=== PATIENT | male | born 1970 | race Caucasian/White ===

== ENCOUNTER 2018-08-26 20:20 | Emergency (ER) | payer OTHER ==
--- NOTE | 2018-08-26 20:45 | EDPHY ---
General Time Seen by Provider: 08/26/18 20:37 Narrative: CLINICAL IMPRESSION: Closed, left, distal fibula fracture with widened ankle mortise ASSESSMENT/PLAN: Pleasant 48-year-old male presents to the emergency department with left ankle pain after slipping on the ice earlier today. Patient has no open wounds, no proximal lower leg knee or upper leg pain. Distal neurovascular exam is intact. X-rays confirm a closed distal fibula fracture as well as a widened ankle mortise suggestive of underlying ligamentous injury. Patient has had numerous ankle sprains to this leg. He was placed in a [address] splint and has crutches. A referral was given to Orthopedics and I encouraged follow-up in the next 24-48 hours. Rice treatment reviewed. Patient declined prescription analgesics. Warning signs for return to emergency department sooner outlined and discharge. DIFFERENTIAL DX: Differential includes but not limited to acute fracture, strain/sprain, joint dislocation, soft tissue contusion ED PROCEDURES: Procedure: Splint placement. A 3 way lower leg splint was applied to left leg by emergency medical technician basic, supervised by myself. After application of the splint I returned and re-examined the patient. The splint was adequately immobilizing the joint and distal to the splint the patient's circulation and sensation was intact. ED COURSE: 8:40 p.m.: X-rays ordered. Patient took ibuprofen prior to arrival CHIEF COMPLAINT: Left ankle pain HPI: 48-year-old otherwise healthy male presents to the emergency department after he slipped on ice today injuring his left ankle. Patient states his ankle " when all kinds of different directions". He reports prior sprains to this ankle but has never had surgery. No open wounds. No reported knee pain, hip pain or numbness or tingling to the foot or toes. PAST MEDICAL HISTORY: Prior ankle sprains Pertinent Past Surgical History: None reported Social History: Otherwise healthy REVIEW OF SYSTEMS: All other systems negative Constitutional: No fever, no chills Musculoskeletal: No deformity, + joint pain Skin: No rashes, color change or open wounds. Neurological: No sensory loss or weakness. PHYSICAL EXAM: General Appearance: Alert, oriented, appropriate for age, cooperative, NAD, well hydrated, non-toxic appearing, VSS, no hypoxia. Neurological: Alert and oriented x 3, normal sensation Skin: Warm, dry, no rashes, no nodules on palpation. Musculoskeletal: Obvious swelling to medial and lateral malleolus of left ankle. No open wounds. Distal neurovascular exam intact. Mild palpable defect to distal fibula concerning for fracture. MEDICAL DECISION MAKING: Patient was seen independently. Secondary supervising physician at time of evaluation was Dr. Carey. Diagnosis: Closed left distal fibula fracture with widened ankle mortise. New, requires workup Summary: See assessment and plan for summary of ED visit Independent visualization of images, tracing, or specimens yes. Patient Progress: stable . - History Smoking Status: Never smoked - Objective Vital Signs: Initial Vital Signs Temperature (C) 36.9 C 08/26/18 20:25 Heart Rate 89 08/26/18 20:25 Respiratory Rate 20 08/26/18 20:25 Blood Pressure 124/85 H 08/26/18 20:25 O2 Sat (%) 95 08/26/18 20:25 O2 Delivery Mode Room Air Allergies/Adverse Reactions: No Known Allergies Allergy (Unverified 08/26/18 20:23) Home Medications: Medication Instructions Recorded Celexa 08/26/18 Departure - Departure Disposition: Home, Routine, Self-Care Clinical Impression: Fracture of distal fibula Condition: Good Instructions: Leg Fracture (ED) Additional Instructions: DISCHARGE INSTRUCTIONS FROM YOUR DOCTOR Thank you for visiting our emergency department today. Please keep in mind that discharge from the emergency department does not mean that there is nothing wrong - it simply means that we have not identified an emergency condition that requires further evaluation or treatment in the hospital. You should always plan to follow up with primary care for re-evaluation of your condition in the next 2-3 days. If you have been referred to a specialist, please call as soon as possible (today or tomorrow) to schedule your follow up appointment at the appropriate time. YOU HAVE A CLOSED FRACTURE OF THE DISTAL FIBULA ON THE LEFT LEG. THIS NEEDS ORTHOPEDIC EVALUATION. PLEASE CALL ORTHOPEDICS TOMORROW, LET THEM KNOW YOUR IN THE EMERGENCY DEPARTMENT AND YOU NEED TO FOLLOW-UP APPOINTMENT. PLEASE DO NOT PUT WEIGHT ON THE LEG UNTIL YOU SEE ORTHOPEDICS. REST AND ELEVATE THE AFFECTED EXTREMITY MUCH POSSIBLE. ICE THE AFFECTED AREAS 20 MIN ON, 20 MIN OFF FOR THE NEXT SEVERAL DAYS. PLEASE USE TYLENOL OR IBUPROFEN OVER THE COUNTER IN APPROPRIATE DOSES OUTLINED ON YOUR DISCHARGE PAPERS. TAKE IBUPROFEN WITH FOOD AND A LARGE GLASS OF WATER. RETURN TO THE EMERGENCY DEPARTMENT FOR WORSENING PAIN, LOSS OF SENSATION TO THE FOOT OR TOES, SKIN DISCOLORATION TO THE FOOT OR TOES, FEVER OR ANY OTHER CONCERN. People present with illnesses and injuries in different ways, and it is always possible that we have missed something. You may always return for re-evaluation if symptoms worsen or if they are not improving or if you develop new/different symptoms. Again, thank you for choosing our emergency department. We hope that you feel better. Referrals: Yesenia Banks NP [Primary Care Provider] - As per Instructions Sarah Marion MD [Medical Doctor] - 1-2 days without fail
[2018-08-26 21:49] VITALS: BP 124/71
== END 2018-08-26 22:10 | disposition home or self-care (01) ==
PROC: 2W3RX1Z Immobilization of Left Lower Leg using Splint (ICD-10-PCS; principal; 2018-08-26)
DX: S82.492A Other fracture of shaft of left fibula, initial encounter for closed fracture (principal); W00.0XXA Fall on same level due to ice and snow, initial encounter; Y92.480 Sidewalk as the place of occurrence of the external cause

== ENCOUNTER 2018-08-31 11:33 | Day surgery (SDC) | payer OTHER ==
--- NOTE | 2018-08-30 15:31 | PDGENHP ---
History & Physical Chief Complaint: Left distal fibul afracture, syndesmosis injury History of Present Illness: Bulmaro is a pleasant 48 year old male who fell while walking on [address]. He was found to have displaced left distal fibula fracture with widening of the syndesmosis on radiograph. Risks, benefits , alternatives to conservative and surgical treatment were discussed and patient would like to proceed with surgical intervention. Pertinent Past, Social, Family History: PMH: Hernia. SH: former smoker. FH: non-contributory Relevant Physical Exam: Bulmaro is in a well fitting splint. NV intact LLE to limited exam. Radiographs show displaced distal fibula fracture with widening of the syndesmosis. Cardiorespiratory Assessment: RRR, CTAB
[2018-08-31] MEDS ORDERED: ceFAZolin 2 GM/DEXTROSE 100 ML IV ONE (12:06)
[2018-08-31] MEDS ORDERED: DEXAMETHASONE 4 MG/ML VIAL ONE (12:28)
[2018-08-31] MEDS ORDERED: LIDOCAINE 2% 5 ML SDV ONE ×3 (12:28→12:33)
[2018-08-31] MEDS ORDERED: ONDANSETRON 4 MG/2 ML VIAL ONE (12:28)
[2018-08-31] MEDS ORDERED: PROPOFOL 200 MG/20 ML VIAL ONE (12:29)
[2018-08-31] MEDS ORDERED: fentaNYL 100 MCG/2 ML INJ ONE ×2 (12:29→13:37)
[2018-08-31] MEDS ORDERED: ROPIVACAINE HCL 100 MG/20 ML INJ ONE (12:31)
[2018-08-31] MEDS ORDERED: LR 1,000 ML IV ONE (12:36)
[2018-08-31] MEDS ORDERED: MIDAZOLAM 2 MG/2 ML VIAL IVP ONE (12:39)
--- NOTE | 2018-08-31 12:39 | PDANEPAE ---
ANE Past Medical History - Cardiovascular History Hx Hypertension: No Hx Arrhythmias: No Hx Chest Pain: No Hx Coronary Artery / Peripheral Vascular Disease: No Hx CHF / Valvular Disease: No Hx Palpitations: No - Pulmonary History Hx COPD: No Hx Asthma/Reactive Airway Disease: No Hx Recent Upper Respiratory Infection: No Hx Oxygen in Use at Home: No Hx Sleep Apnea: No Sleep Apnea Screening Result - Last Documented: Negative - Neurologic History Hx Cerebrovascular Accident: No Hx Seizures: No Hx Dementia: No - Endocrine History Hx Diabetes: No - Renal History Hx Renal Disorders: No - Liver History Hx Hepatic Disorders: No - Neurological & Psychiatric Hx Hx Neurological and Psychiatric Disorders: No - Cancer History Hx Cancer: Yes Cancer History Comment: skin cancer recently removed - Congenital Disorder History Hx Congenital Disorders: No - GI History Hx Gastrointestinal Disorders: No - Other Health History Other Health History: none - Chronic Pain History Chronic Pain: No - Surgical History Prior Surgeries: cyst removed from sinuses. skin cancer removal. hernia repair x2 ANE Review of Systems Review of Systems: - Exercise capacity METS (RN): 4 METS ANE Patient History - Allergies Allergies/Adverse Reactions: metals Allergy (Uncoded 08/31/18 12:10) Rash - Home Medications Home Medications: Celexa 08/26/18 [Last Taken 08/30/18] Fish Oil 1,000 mg Softgel 4,000 units 08/31/18 [Last Taken 08/24/18] Multivitamin 08/31/18 [Last Taken 08/29/18] - NPO status NPO Since - Liquids (Date): 08/31/18 NPO Since - Liquids (Time): 09:00 NPO Since - Solids (Date): 08/30/18 NPO Since - Solids (Time): 23:00 - Smoking Hx Smoking Status: Former smoker - Family Anes Hx Family Hx Anesthesia Complications: none ANE Labs/Vital Signs - Vital Signs Blood Pressure: 110/75 Heart Rate: 85 Respiratory Rate: 16 O2 Sat (%): 94 Height: 182.88 cm Weight: 78.425 kg ANE Physical Exam - Airway Neck exam: FROM Mallampati Score: Class 2 Mouth exam: normal dental/mouth exam - Pulmonary Pulmonary: no respiratory distress, no rales or rhonchi, clear to auscultation - Cardiovascular Cardiovascular: regular rate and rhythym, no murmur, rub, or gallop - ASA Status ASA Status: II ANE Anesthesia Plan Anesthesia Plan: GA w LMA Regional Anesthesia: single shot NB
--- NOTE | 2018-08-31 12:39 | POSTANESTH ---
Post Anesthetic Evaluation Cardiovascular Status: Normal, Stable Respiratory Status: Normal, Stable Level of Consciousness/Mental Status: Can Participate in Eval Pain Control: Adequate, Prn Tx Ordered Nausea/Vomiting Control: Adequate, Prn Tx Ordered Complications Possibly Related to Anesthesia: None Noted
[2018-08-31] MEDS ORDERED: HYDROmorphONE/DILAUDID 2 MG/ML INJ IVP PRN (12:40)
[2018-08-31] MEDS ORDERED: METOCLOPRAMIDE 10 MG/2 ML VIAL IVP PRN (12:40)
[2018-08-31] MEDS ORDERED: fentaNYL 100 MCG/2 ML INJ IVP PRN (12:40)
[2018-08-31] MEDS ORDERED: PHENYLEPHRINE HCL 100 MCG/ML SYR IVP PRN (12:40)
[2018-08-31] MEDS ORDERED: LR 500 ML IV PRN (12:40)
[2018-08-31] MEDS ORDERED: oxyCODONE IR 5 MG TAB PO PRN (12:40)
[2018-08-31] MEDS ORDERED: MEPERIDINE 25 MG/0.5 ML AMP IVP PRN (12:40)
[2018-08-31] MEDS ORDERED: ONDANSETRON 4 MG/2 ML VIAL IVP PRN (12:40)
[2018-08-31] MEDS ORDERED: PROMETHAZINE HCL 25 MG/ML INJ IVP PRN (12:40)
[2018-08-31] MEDS ORDERED: NALOXONE HCL 0.4 MG/ML INJ IVP PRN (12:40)
[2018-08-31] MEDS ORDERED: POLYMYXIN B SULFATE 500,000 UNIT/10 ML SYR IRR ONE (12:42)
[2018-08-31] MEDS ORDERED: BACITRACIN 50,000 UNITS/10 ML SYR IRR ONE (12:42)
--- NOTE | 2018-08-31 13:17 | PDHPUP ---
History & Physical Update H&P update statement: This history and physical update is based on an assessment of the patient which was completed after admission or registration (within 24 hours), but prior to the surgery/procedure. H&P update: H&P reviewed & patient examined, no change in patient's condition since H&P completed
[2018-08-31] MEDS ORDERED: OXYCODONE/APAP 5/325 TAB PO PRN (14:58)
--- NOTE | 2018-08-31 14:58 | POSTOPPROG ---
Post Op Note Date of Operation: 08/31/18 Surgeon: Sarah Marion Oleomargarine Maker: Lori Strauss Anesthesia: GET(General Endotracheal) Pre-op Diagnosis: Left distal fibula fracture with syndesmosis injury Post-op Diagnosis: Left distal fibula fracture with syndesmosis injury Procedure: ORIF left distal fibula with repair of syndesmosis Inf/Abcess present in the surg proc area at time of surgery?: No Depth: Deep Incisional (Fascial) EBL: Minimal
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
[2018-08-31 17:12] VITALS: BP 108/71
== END 2018-08-31 17:05 | disposition home or self-care (01) ==
LOC: FSGY 11:33
PROVIDERS: ATTEND Orthopaedic Surgery
DX: S82.832A Other fracture of upper and lower end of left fibula, initial encounter for closed fracture (principal); S93.432A Sprain of tibiofibular ligament of left ankle, initial encounter; W19.XXXA Unspecified fall, initial encounter; Y92.410 Unspecified street and highway as the place of occurrence of the external cause; Y99.9 Unspecified external cause status; Y93.01 Activity, walking, marching and hiking
CPT/HCPCS: C1713; J0690; J1100; J2250; J2405; J2704; J2795; J3010

== ENCOUNTER 2018-09-06 06:09 | Observation (INO) | payer OTHER ==
--- NOTE | 2018-09-06 06:27 | EDPHY ---
H & P Stated Complaint: left side CP Time Seen by Provider: 09/06/18 06:14 HPI/ROS: Chief Complaint: Chest pain, shortness of breath HPI: 48-year-old male is 6 days status post open tib-fib repair has been having some shortness of breath for last 2 days but woke with left-sided chest pain this morning. Pain is about a 7/10. Is worse with inspiration. He has continued to feel increasingly short of breath. No cough. No history of similar episodes in the past. He does state that he has been fairly immobile for the last few days. He has been taking tramadol for his postop pain. ROS: 10 systems were reviewed and were negative except those elements noted in the HPI. PMH: Denies Social History: No smoking, no alcohol, no recreational drug use Family History: non-contributory Physical Exam: Heart rate 100 in 3, room air oxygen saturations 90% Gen: Awake, Alert, anxious appearing HEENT: Nose: no rhinorrhea Eyes: PERRLA, EOMI Mouth: Moist mucosa Neck: Supple, no JVD Chest: nontender, lungs clear to auscultation Heart: S1, S2 normal, no murmur Abd: Soft, non-tender, no guarding Back: no CVA tenderness, no midline tenderness Ext: no edema, non-tender Skin: no rash Neuro: CN II-XII intact, Sensation grossly intact, Strength 5/5 in bilateral upper and lower extremities - Personal History Current Tetanus/Diphtheria Vaccine: Yes Current Tetanus Diphtheria and Acellular Pertussis (TDAP): Yes - Medical/Surgical History Hx Asthma: No Hx Chronic Respiratory Disease: No Hx Diabetes: No Hx Cardiac Disease: No Hx Renal Disease: No Hx Cirrhosis: No Hx Alcoholism: No Hx HIV/AIDS: No Hx Splenectomy or Spleen Trauma: No Other PMH: hernia, left leg surgery, tumor removed under tooth - Social History Smoking Status: Former smoker Constitutional: Initial Vital Signs Temperature (C) 36.8 C 09/06/18 06:10 Heart Rate 99 09/06/18 06:10 Respiratory Rate 16 09/06/18 06:10 Blood Pressure 114/89 H 09/06/18 06:10 O2 Sat (%) 92 09/06/18 06:10 O2 Delivery Mode Nasal Cannula O2 (L/minute) 2 Allergies/Adverse Reactions: magnesium Allergy (Verified 09/06/18 06:19) metals Allergy (Uncoded 09/06/18 06:19) Rash Home Medications: Medication Instructions Recorded Celexa 08/26/18 Fish Oil 1,000 mg Softgel 4,000 units 08/31/18 Multivitamin 08/31/18 Tramadol HCl 50 mg PO Q6HRS #30 tablet 08/31/18 Medical Decision Making - Diagnostics EKG Interpretation: ECG time 6:15 a.m., sinus rhythm with a rate of 98, is left axis deviation, nonspecific ST changes in leads [address] elevation in the lateral leads without reciprocal change. Abnormal ECG. ED Course/Re-evaluation: 48-year-old male who is 6 days postop from ankle surgery complaining of pleuritic chest pain, [place] tachycardic, hypoxemic. Some nonspecific abnormalities on his ECG. Troponin is negative. Plan will be for blood tests and CT angiogram of the chest to rule out PE. CT positive for PE. Patient's hemodynamics are appropriate. I have ordered Lovenox. Discussed with the hospitalist, Dr. Penn. She will admit to her service for further care. - Data Points Laboratory Results: Laboratory Results 09/06/18 06:25 09/06/18 06:25 09/06/18 09/06/18 09/06/18 06:26 06:25 06:25 WBC 11.13 10^3/uL H 10^3/uL (3.80-9.50) RBC 5.48 10^6/uL 10^6/uL (4.40-6.38) Hgb 17.4 g/dL g/dL (13.7-17.5) POC Hgb 18.0 gm/dL H gm/dL (13.7-17.5) Hct 49.0 % % (40.0-51.0) POC Hct 53 % H % (40-51) MCV 89.4 fL fL (81.5-99.8) MCH 31.8 pg pg (27.9-34.1) MCHC 35.5 g/dL g/dL (32.4-36.7) RDW 11.3 % L % (11.5-15.2) Plt Count 269 10^3/uL 10^3/uL (150-400) MPV 9.4 fL fL (8.7-11.7) Neut % (Auto) 72.4 % % (39.3-74.2) Lymph % (Auto) 15.2 % % (15.0-45.0) Jennings % (Auto) 10.7 % % (4.5-13.0) Eos % (Auto) 1.0 % % (0.6-7.6) Baso % (Auto) 0.4 % % (0.3-1.7) Nucleat RBC Rel Count 0.0 % % (0.0-0.2) Absolute Neuts (auto) 8.07 10^3/uL H 10^3/uL (1.70-6.50) Absolute Lymphs (auto) 1.69 10^3/uL 10^3/uL (1.00-3.00) Absolute Monos (auto) 1.19 10^3/uL H 10^3/uL (0.30-0.80) Absolute Eos (auto) 0.11 10^3/uL 10^3/uL (0.03-0.40) Absolute Basos (auto) 0.04 10^3/uL 10^3/uL (0.02-0.10) Absolute Nucleated RBC 0.00 10^3/uL 10^3/uL (0-0.01) Immature Gran % 0.3 % % (0.0-1.1) Immature Gran # 0.03 10^3/uL 10^3/uL (0.00-0.10) POC Sodium 139 mEq/L mEq/L (135-145) Sodium 137 mEq/L mEq/L (135-145) POC Potassium 4.3 mEq/L mEq/L (3.3-5.0) Potassium 4.6 mEq/L mEq/L (3.5-5.2) POC Chloride 106 mEq/L mEq/L (97-110) Chloride 105 mEq/L mEq/L (97-110) Carbon Dioxide 20 mEq/l L mEq/l (22-31) POC Total CO2 19 mEq/L L mEq/L (22-31) Anion Gap 12 mEq/L mEq/L (6-14) POC BUN 28 mg/dL H mg/dL (7-23) BUN 29 mg/dL H mg/dL (7-23) Creatinine 1.0 mg/dL mg/dL (0.7-1.3) POC Creatinine 0.9 mg/dL mg/dL (0.7-1.3) Estimated GFR > 60 Glucose 117 mg/dL H mg/dL (70-100) POC Glucose 123 mg/dL H mg/dL (70-100) Calcium 9.6 mg/dL mg/dL (8.5-10.4) POC Troponin I 09/06/18 06:24 WBC RBC Hgb POC Hgb Hct POC Hct MCV MCH MCHC RDW Plt Count MPV Neut % (Auto) Lymph % (Auto) Jennings % (Auto) Eos % (Auto) Baso % (Auto) Nucleat RBC Rel Count Absolute Neuts (auto) Absolute Lymphs (auto) Absolute Monos (auto) Absolute Eos (auto) Absolute Basos (auto) Absolute Nucleated RBC Immature Gran % Immature Gran # POC Sodium Sodium POC Potassium Potassium POC Chloride Chloride Carbon Dioxide POC Total CO2 Anion Gap POC BUN BUN Creatinine POC Creatinine Estimated GFR Glucose POC Glucose Calcium POC Troponin I 0.00 ng/mL ng/mL (0.00-0.08) Medications Given: Discontinued Medications Sodium Chloride (Ns) 1,000 mls @ 0 mls/hr IV ONCE ONE; Wide Open PRN Reason: Protocol Stop: 09/06/18 06:57 Last Admin: 09/06/18 06:56 Dose: 1,000 mls Point of Care Test Results: Chemistry 09/06/18 09/06/18 06:26 06:24 POC Sodium 139 mEq/L mEq/L (135-145) POC Potassium 4.3 mEq/L mEq/L (3.3-5.0) POC Chloride 106 mEq/L mEq/L (97-110) POC Total CO2 19 mEq/L L mEq/L (22-31) POC BUN 28 mg/dL H mg/dL (7-23) POC Creatinine 0.9 mg/dL mg/dL (0.7-1.3) POC Glucose 123 mg/dL H mg/dL (70-100) POC Troponin I 0.00 ng/mL ng/mL (0.00-0.08) ISTAT H&H 09/06/18 06:26 POC Hgb 18.0 gm/dL H gm/dL (13.7-17.5) POC Hct 53 % H % (40-51) Departure - Departure Disposition: [facility] Clinical Impression: Pulmonary embolism Condition: Fair Referrals: Yesenia Banks NP [Primary Care Provider] - As per Instructions
[2018-09-06] MEDS ORDERED: IOHEXOL 350mgI/ML (OMNIPAQUE) 150 ML BTL IV ONE (06:34)
[2018-09-06 06:47] LABS: PLATELET COUNT 269 10^3/uL (150-400)
[2018-09-06] MEDS ORDERED: NS 1,000 ML IV ONE (06:56)
[2018-09-06] MEDS ORDERED: ENOXAPARIN 80 MG/0.8 ML SYR SC ONE (07:04)
[2018-09-06] MEDS ORDERED: ONDANSETRON DISINTEGRATING 4 MG TAB PO PRN (07:37)
[2018-09-06] MEDS ORDERED: ONDANSETRON 4 MG/2 ML VIAL IVP PRN (07:37)
[2018-09-06] MEDS ORDERED: LORazepam 0.5 MG TAB PO PRN (07:37)
[2018-09-06] MEDS ORDERED: HYDROCODONE/APAP 5/325 TAB PO PRN (07:37)
[2018-09-06] MEDS: ACETAMINOPHEN 325 MG TAB PO PRN ×3 (12:39→20:19)
[2018-09-06] MEDS: ENOXAPARIN 80 MG/0.8 ML SYR SC SCH ×2 (13:15→20:37)
--- NOTE | 2018-09-06 14:01 | PDGENHP ---
History and Physical - Chief Complaint Chest pain and shortness of breath - History of Present Illness Bulmaro Argueta is a 40-year-old male with past medical history of depression who was recently admitted for a left tib-fib repair on August 30 presented to the emergency room complaints of worsening chest pain and shortness of breath. He said that since he has been discharged she has had chest pain that he says feels like his lung muscles hurt along with worsening shortness of breath in the last 24 hr. His original fracture occurred August 26 and he was discharged home with referral to Orthopedics. His family noted that he did have some swelling and bruising in his upper calf even prior to surgery. He complains that since discharge he has had bilateral chest pain, sharp in nature , constant, worse with deep inspiration. He has been fairly bedridden since having the surgery. He also notes that he is winded with any kind of movement or exertion. He denied any fevers, chills, cough, increased swelling, orthopnea or other symptoms. History Information - Allergies/Home Medication List Allergies/Adverse Reactions: magnesium Allergy (Verified 09/06/18 06:19) metals Allergy (Uncoded 09/06/18 06:19) Rash Home Medications: Citalopram Hydrobromide [celeXA 10 MG] 10 mg PO DAILY #0 08/26/18 [Last Taken 5 Days Ago ~09/01/18] Herbals/Supplements -Info Only 1 ea PO DAILY 09/06/18 [Last Taken Unknown] Ibuprofen [Motrin (*)] 200 mg PO DAILY PRN 09/06/18 [Last Taken Unknown] Tramadol HCl 25 - 50 mg PO Q6HRS 09/06/18 [Last Taken 09/05/18 20:00 25MG] I have personally reviewed and updated: family history, medical history, social history, surgical history - Past Medical History Additional medical history: Depression - Surgical History Additional surgical history: Recent tib-fib repair - Family History Positive for: non-pertinent - Social History Smoking Status: Former smoker Drug Use: Marijuana Review of Systems Review of Systems: ROS: 10pt was reviewed & negative except for what was stated in HPI & below Physical Exam Physical Exam: Temp Pulse Resp BP Pulse Ox 36.9 C 101 H 19 138/90 H 94 09/06/18 11:52 09/06/18 11:52 09/06/18 11:52 09/06/18 11:52 09/06/18 11:52 O2 (L/minute) 2 Constitutional: no apparent distress, appears nourished, not in pain Eyes: PERRL, anicteric sclera, EOMI Ears, Nose, Mouth, Throat: moist mucous membranes, hearing normal, ears appear normal, no oral mucosal ulcers Cardiovascular: regular rate and rhythym, no murmur, rub, or gallop, No edema Respiratory: no respiratory distress, no rales or rhonchi, clear to auscultation Gastrointestinal: normoactive bowel sounds, soft, non-tender abdomen, no palpable masses Genitourinary: no bladder fullness, no bladder tenderness Skin: warm, normal color, no rashes or abrasions, no fluctuance, no induration, No mottled Musculoskeletal: full muscle strength, no muscle tenderness, normal joint ROM, no joint effusions, other (Left leg in boot with Hilario wrap) Psychiatric: interacting appropriately, not anxious, not encephalopathic, thought process linear Lymph, Heme, Immunologic: no cervical LAD, no supraclavicular LAD Lab Data & Imaging Review 09/06/18 06:25 09/06/18 06:25 WBC 11.13 10^3/uL (3.80-9.50) H 09/06/18 06:25 RBC 5.48 10^6/uL (4.40-6.38) 09/06/18 06:25 Hgb 17.4 g/dL (13.7-17.5) 09/06/18 06:25 POC Hgb 18.0 gm/dL (13.7-17.5) H 09/06/18 06:26 Hct 49.0 % (40.0-51.0) 09/06/18 06:25 POC Hct 53 % (40-51) H 09/06/18 06:26 MCV 89.4 fL (81.5-99.8) 09/06/18 06:25 MCH 31.8 pg (27.9-34.1) 09/06/18 06:25 MCHC 35.5 g/dL (32.4-36.7) 09/06/18 06:25 RDW 11.3 % (11.5-15.2) L 09/06/18 06:25 Plt Count 269 10^3/uL (150-400) 09/06/18 06:25 MPV 9.4 fL (8.7-11.7) 09/06/18 06:25 Neut % (Auto) 72.4 % (39.3-74.2) 09/06/18 06:25 Lymph % (Auto) 15.2 % (15.0-45.0) 09/06/18 06:25 [place] % (Auto) 10.7 % (4.5-13.0) 09/06/18 06:25 Eos % (Auto) 1.0 % (0.6-7.6) 09/06/18 06:25 Baso % (Auto) 0.4 % (0.3-1.7) 09/06/18 06:25 Nucleat RBC Rel Count 0.0 % (0.0-0.2) 09/06/18 06:25 Absolute Neuts (auto) 8.07 10^3/uL (1.70-6.50) H 09/06/18 06:25 Absolute Lymphs (auto) 1.69 10^3/uL (1.00-3.00) 09/06/18 06:25 Absolute Monos (auto) 1.19 10^3/uL (0.30-0.80) H 09/06/18 06:25 Absolute Eos (auto) 0.11 10^3/uL (0.03-0.40) 09/06/18 06:25 Absolute Basos (auto) 0.04 10^3/uL (0.02-0.10) 09/06/18 06:25 Absolute Nucleated RBC 0.00 10^3/uL (0-0.01) 09/06/18 06:25 Immature Gran % 0.3 % (0.0-1.1) 09/06/18 06:25 Immature Gran # 0.03 10^3/uL (0.00-0.10) 09/06/18 06:25 POC Sodium 139 mEq/L (135-145) 09/06/18 06:26 Sodium 137 mEq/L (135-145) 09/06/18 06:25 POC Potassium 4.3 mEq/L (3.3-5.0) 09/06/18 06:26 Potassium 4.6 mEq/L (3.5-5.2) 09/06/18 06:25 POC Chloride 106 mEq/L (97-110) 09/06/18 06:26 Chloride 105 mEq/L (97-110) 09/06/18 06:25 Carbon Dioxide 20 mEq/l (22-31) L 09/06/18 06:25 POC Total CO2 19 mEq/L (22-31) L 09/06/18 06:26 Anion Gap 12 mEq/L (6-14) 09/06/18 06:25 POC BUN 28 mg/dL (7-23) H 09/06/18 06:26 BUN 29 mg/dL (7-23) H 09/06/18 06:25 Creatinine 1.0 mg/dL (0.7-1.3) 09/06/18 06:25 POC Creatinine 0.9 mg/dL (0.7-1.3) 09/06/18 06:26 Estimated GFR > 60 09/06/18 06:25 Glucose 117 mg/dL (70-100) H 09/06/18 06:25 POC Glucose 123 mg/dL (70-100) H 09/06/18 06:26 Calcium 9.6 mg/dL (8.5-10.4) 09/06/18 06:25 POC Troponin I 0.00 ng/mL (0.00-0.08) 09/06/18 06:24 Visualized and Interpreted Chest x-ray results: Yes Assessment & Plan Assessment: 48-year-old male admitted after recent tib-fib repair with bilateral pulmonary emboli Pulmonary embolism (Acute)- I reviewed the CT scan which shows mild to moderate volume bilateral pulmonary emboli. EKG with no evidence of heart strain. Troponins within normal limits. He does appear to be mildly hypoxic on room air. Otherwise vital stable and within normal limits -echocardiogram pending -started on Lovenox 1 milligram/kilogram twice daily -oxygen p.r.n. -discussed transition to oral anticoagulation with him -Monitor on telemetry Tibia-fibula fracture with repair- patient underwent the tib-fib repair August [address] Marion. Will need PT OT while here. Has appointment to follow up with Dr. Marion on Monday. Will notify him of the patient's admission Polycythemia- has been noted in the past. Patient's primary care doctor thought this may be secondary to WICHO. Check peripheral smear to start Prophylaxis-Lovenox Fluids-non Electrolytes-within normal limits Nutrition-regular Cor-full Dispo-observation for acute bilateral pulmonary embolism
--- NOTE | 2018-09-06 16:16 | ECHO ---
[email or web address] [address] Main: [phone] Fax: [email or web address] Echocardiogram Name: FRANCISCO JAVIER WHATLEY MR#: [id number] Study Date: 09/06/2018 Study Time: 09:34 AM Date of : 1970 Age: 48 year(s) Height: 182.9 cm (72 in.) Weight: 77.11 kg (170 lb.) BSA: 1.99 m2 Gender: Male Examination: Echo Indication: Broken Left leg, New PE, Shortness of breath, Chest Pain Image Quality: Technically Difficult Contrast: Requested by: Samantha Penn BP: 144 mmHg/86 mmHg Heart Rate: 94 bpm Rhythm: Tachycardia Indication: Broken Left leg, New PE, Shortness of breath, Chest Pain Procedure Staff Bench [employer]er Battery: Zafar Mancia RDCS Reading Physician: Robin Mo MD Requesting Provider: Conclusions: Normal size left ventricle. No LV hypertrophy. Normal global systolic LV function. EF is 63 %. No regional wall motion abnormality. Diastolic dysfunction is present. . Normal size right ventricle. Normal RV function. The left atrium is normal in size. The right atrium is normal in size. The mitral valve is normal in appearance and function. There is no mitral valve regurgitation. No mitral stenosis is present. The aortic valve is tri-leaflet. There is no aortic valve regurgitation. The tricuspid valve is normal in appearance and function. Pulmonary artery pressure is not obtained due to inadequate TR jet. The pulmonic valve is normal in appearance and function. The aorta is normal. No pericardial effusion. A prior study is not available for comparison. The Pulmonary pressure could not be estimated. The RV is not dilated and there is normal RV function on the basis of this study. Measurements: Chambers Valvular Assessment AV/MV Valvular Assessment TV/PV Normal Normal Normal Name Value Range Name Value Range Name Value Range Patient: FRANCISCO JAVIER WHATLEY Study Date: 09/06/2018 Page 1 of 2 09:34 AM Ao Viv (MM): 2.9 cm (2.2 cm-3.7 AV Vmax: 1.00 m/s (1 m/s-1.7 PV Vmax: 0.79 m/s (0.6 m/s-0.9 cm) m/s) m/s) IVSd (2D): 1.0 cm (0.6 cm-1.1 AV maxP mmHg ( - ) PV PGmax: 3 mmHg ( - ) cm) LVOT Vmax: 0.83 m/s (0.7 m/s-1.1 LVDd (2D): 4.5 cm (4.2 cm-5.9 m/s) cm) MV E Vmax: 0.38 m/s ( - ) LVDs (2D): 2.9 cm (2.1 cm-4 MV A Vmax: 0.61 m/s ( - ) cm) MV E/A: 0.62 ( - ) LVPWd (2D): 1.0 cm (0.6 cm-1 cm) LVEF (2D): 63 (>=54 %) RVDd(2D): 2.7 cm (1.9 cm-3.8 cmmm) Continued Measurements: Valvular Assessment AV/MV Name Value MV E/E' Lateral: 8.60 Findings: Left Ventricle: Normal size left ventricle. No LV hypertrophy. Normal global systolic LV function. EF is 63 %. No regional wall motion abnormality. Diastolic dysfunction is present. . Right Ventricle: Normal size right ventricle. Normal RV function. Left Atrium: The left atrium is normal in size. Right Atrium: The right atrium is normal in size. Mitral Valve: The mitral valve is normal in appearance and function. There is no mitral valve regurgitation. No mitral stenosis is present. Aortic Valve: The aortic valve is tri-leaflet. There is no aortic valve regurgitation. Tricuspid Valve: The tricuspid valve is normal in appearance and function. Pulmonary artery pressure is not obtained due to inadequate TR jet. Pulmonic Valve: The pulmonic valve is normal in appearance and function. Aorta: The aorta is normal. Pericardium: No pericardial effusion. (No Signature Object) Patient: FRANCISCO JAVIER WHATLEY Study Date: 09/06/2018 Page 2 of 2 09:34 AM [id number]
[2018-09-07] MEDS: ACETAMINOPHEN 325 MG TAB PO PRN (01:27)
--- NOTE | 2018-09-07 02:20 | CPEKG ---
Test Reason : OPEN Blood Pressure : / mmHG Vent. Rate : 098 BPM Atrial Rate : 101 BPM P-R Int : 155 ms QRS Dur : 104 ms QT Int : 345 ms P-R-T Axes : 047 -47 058 degrees QTc Int : 441 ms Sinus rhythm LAD, consider left anterior fascicular block Probable anteroseptal infarct, old Minimal ST elevation, lateral leads Confirmed by Jensen Crespo ([id number]) on 09/07/2018 2:20:01 AM Referred By: Jensen Crespo Confirmed By:Jensen Crespo
[2018-09-07 05:52] LABS: PLATELET COUNT 264 10^3/uL (150-400)
[2018-09-07 08:27] VITALS: BP 128/90
[2018-09-07] MEDS: ENOXAPARIN 80 MG/0.8 ML SYR SC SCH (11:40)
--- NOTE | 2018-09-07 17:40 | PDDCSUM ---
Discharge Summary Discharge Summary: Discharge diagnosis Pulmonary embolism Postop left tib-fib repair The patient is a 48-year-old male who was recently discharged after having surgical repair of a left tib-fib fracture by Dr. Marion. He subsequently re- presented with chest tightness and shortness of breath. CT a was obtained which showed a [id number]-[id number]-[id number] sized pulmonary embolism. He was started on Lovenox twice daily with no complications. He was transitioned to Eliquis and discharged home to follow up with primary care provider as well as was Dr. Marion at his regularly scheduled follow-up. On the day discharge he had no oxygen requirement, minimal chest pain and was tolerating p.o. With no problems. Discharge disposition Home in good condition New medications Eliquis
== END 2018-09-07 12:45 | disposition home or self-care (01) ==
LOC: F2W 11:45
PROVIDERS: ADMIT Family Medicine; ATTEND Internal Medicine
DX: I26.99 Other pulmonary embolism without acute cor pulmonale (principal); D75.1 Secondary polycythemia; Z98.890 Other specified postprocedural states; S82.832A Other fracture of upper and lower end of left fibula, initial encounter for closed fracture; S93.432A Sprain of tibiofibular ligament of left ankle, initial encounter; W19.XXXA Unspecified fall, initial encounter; E86.0 Dehydration
CPT/HCPCS: 71275; 93005; 93306; 97116; 97161; 97530; G0378; 82435-PO; 82565-PO; 82947-PO; 84132-PO; 84295-PO; 84484-ER; 84520-PO; 85014-ER; J1650; Q9967